=== PATIENT | female | born 1960 | race Caucasian/White ===

== ENCOUNTER → 2017-04-23 | Outpatient (RCR) | payer MEDICAID, OTHER | LOC: M PT 04-11 07:44 | PROVIDERS: ATTEND Family Medicine | DX: Z51.89 Encounter for other specified aftercare (principal); I89.0 Lymphedema, not elsewhere classified ==

== ENCOUNTER 2017-05-23 08:30 | Outpatient (RCR) | payer OTHER | END 2017-05-24 | disposition home or self-care (01) | LOC: M PT 08:30 | PROVIDERS: ATTEND Family Medicine | DX: Z51.89 Encounter for other specified aftercare (principal); I89.0 Lymphedema, not elsewhere classified ==

== ENCOUNTER → 2017-08-14 | Outpatient (REF) | payer OTHER ==
[2017-08-14 13:56] LABS: BACTERIA, URINE MOD AMOUNT; HYALINE CAST, URINE NONE SEEN /lpf (0-1); MICROSCOPIC EXAM PERFORMED; RBC, URINE 15-20 /hpf (0-3); SQUAMOUS EPITHELIAL CELL URINE MOD AMOUNT /hpf (SMALL AMT)
[2017-08-14 14:14] LABS: PERCENT SATURATION 12.4 % (13.2-45.0)
== END ==
LOC: M LAB REF 13:03
PROVIDERS: ATTEND Internal Medicine Nephrology
DX: N18.3 Chronic kidney disease, stage 3 (moderate) (principal); D64.9 Anemia, unspecified; R31.29 Other microscopic hematuria

== ENCOUNTER 2017-08-22 08:30 | Outpatient (RCR) | payer OTHER | END 2017-08-23 | LOC: M PT 08:30 | PROVIDERS: ATTEND Family Medicine | DX: Z51.89 Encounter for other specified aftercare (principal); I89.0 Lymphedema, not elsewhere classified ==

== ENCOUNTER → 2017-10-12 | Outpatient (CLI) | payer OTHER ==
[2017-10-12 09:43] LABS: ESTIMATED AVERAGE GLUCOSE 123 MG/DL (60-110); HEMOGLOBIN A1c 5.9 %
== END ==
LOC: M LAB 08:08
DX: E11.9 Type 2 diabetes mellitus without complications (principal)
CPT/HCPCS: 83036

== ENCOUNTER → 2017-11-05 | Outpatient (CLI) | payer OTHER | LOC: M WHC 07:56 | DX: Z12.31 Encounter for screening mammogram for malignant neoplasm of breast (principal) | CPT/HCPCS: 77067 ==

== ENCOUNTER → 2018-02-04 | Outpatient (CLI) | payer OTHER ==
[2018-02-04 17:54] LABS: HEMATOCRIT 34.4 % (36.0-47.0); HEMOGLOBIN 11.2 g/dl (12.0-15.5); MEAN CORPUSCULAR HGB CONC 32.6 g/dl (32.0-36.5); PLATELET COUNT, AUTOMATED 236 10^3/uL (150-450); RED CELL DISTRIBUTION WIDTH 14.8 % (11.5-14.5); WHITE BLOOD COUNT 6.5 10^3/uL (4.0-10.0)
[2018-02-04 18:06] LABS: ANION GAP 8 MEQ/L (8-16); BLOOD UREA NITROGEN 27 MG/DL (7-18); CALCIUM LEVEL 9.3 MG/DL (8.5-10.1); CARBON DIOXIDE LEVEL 26 MEQ/L (21-32); CHLORIDE LEVEL 108 MEQ/L (98-107); CREATININE FOR GFR 1.59 MG/DL (0.55-1.30); GLOMERULAR FILTRATION RATE 35.4 (>51); GLUCOSE, FASTING 124 MG/DL (70-100); POTASSIUM SERUM 4.5 MEQ/L (3.5-5.1); SODIUM LEVEL 142 MEQ/L (136-145)
== END ==
LOC: M LAB 15:47
DX: N93.9 Abnormal uterine and vaginal bleeding, unspecified (principal); E66.01 Morbid (severe) obesity due to excess calories; I48.2 Chronic atrial fibrillation
CPT/HCPCS: 80048

== ENCOUNTER → 2018-02-12 | Outpatient (CLI) | payer OTHER | LOC: M RAD 17:40 | DX: C54.1 Malignant neoplasm of endometrium (principal) | CPT/HCPCS: 76856 ==

== ENCOUNTER → 2018-04-11 | Outpatient (CLI) | payer MEDICARE, OTHER ==
[2018-04-11 09:22] LABS: ESTIMATED AVERAGE GLUCOSE 157 MG/DL (60-110); HEMOGLOBIN A1c 7.1 %
== END ==
LOC: M LAB 07:56
DX: E11.9 Type 2 diabetes mellitus without complications (principal); E03.9 Hypothyroidism, unspecified
CPT/HCPCS: 84443

== ENCOUNTER → 2018-07-04 | Outpatient (REF) | payer MEDICARE, OTHER, MEDICAID ==
[2018-07-04 14:45] LABS: FERRITIN 17 NG/ML (8-252); IRON (FE) 60 UG/DL (50-170); PERCENT SATURATION 14.2 % (13.2-45.0); TOTAL IRON BINDING CAPACITY 424 UG/DL (250-450)
== END ==
LOC: M LAB REF 14:05
DX: N18.3 Chronic kidney disease, stage 3 (moderate) (principal); D64.9 Anemia, unspecified
CPT/HCPCS: 83550

== ENCOUNTER → 2018-07-17 | Outpatient (CLI) | payer MEDICARE, MEDICAID, OTHER ==
[2018-07-17 08:54] LABS: ESTIMATED AVERAGE GLUCOSE 220 MG/DL (60-110); HEMOGLOBIN A1c 9.3 %
== END ==
LOC: M LAB 07:25
DX: E03.9 Hypothyroidism, unspecified (principal); E11.9 Type 2 diabetes mellitus without complications
CPT/HCPCS: 84443

== ENCOUNTER → 2018-10-21 | Outpatient (REF) | payer MEDICARE ==
[2018-10-21 12:13] LABS: HEMOGLOBIN A1c 7.3 %
[2018-10-21 12:17] LABS: ALBUMIN 3.8 GM/DL (3.2-5.2); BILIRUBIN,TOTAL 0.7 MG/DL (0.2-1.0); CALCIUM LEVEL 9.5 MG/DL (8.8-10.2); CREATININE FOR GFR 1.73 MG/DL (0.55-1.30); FREE T4 1.22 NG/DL (0.76-1.46); POTASSIUM SERUM 4.5 MEQ/L (3.5-5.1); THYROID STIMULATING HORMONE 2.9 uIU/ML (0.358-3.740); TOTAL PROTEIN 7.6 GM/DL (6.4-8.2)
== END ==
LOC: M SFHCPLAZ 09:17
PROVIDERS: ATTEND Nurse Practitioner Family
DX: E11.65 Type 2 diabetes mellitus with hyperglycemia (principal); E03.9 Hypothyroidism, unspecified

== ENCOUNTER → 2019-01-21 | Outpatient (REF) | payer MEDICARE ==
[2019-01-21 11:36] LABS: HEMOGLOBIN A1c 6.7 %
[2019-01-21 12:05] LABS: CALCIUM LEVEL 9.4 MG/DL (8.8-10.2); CREATININE FOR GFR 1.79 MG/DL (0.55-1.30); GLOMERULAR FILTRATION RATE 30.8 (>45); POTASSIUM SERUM 4.6 MEQ/L (3.5-5.1)
== END ==
LOC: M SFHCPLAZ 08:35
PROVIDERS: ATTEND Family Medicine
DX: E11.21 Type 2 diabetes mellitus with diabetic nephropathy (principal); N18.3 Chronic kidney disease, stage 3 (moderate)

== ENCOUNTER 2019-02-05 08:15 | Emergency (ER) | payer MEDICARE ==
[2019-02-05] MEDS ORDERED: BUME1TAB3 PO (08:32)
[2019-02-05] MEDS ORDERED: LEVO50TA5 PO (08:32)
[2019-02-05] MEDS ORDERED: ALLO100T PO (08:32)
[2019-02-05] MEDS ORDERED: ATOR1TAB21 PO (08:32)
[2019-02-05] MEDS ORDERED: TRES1INJ SQ (08:32)
[2019-02-05] MEDS ORDERED: LOSA50TA88 PO (08:32)
[2019-02-05] MEDS ORDERED: CALC1CAP31 PO (08:32)
[2019-02-05] MEDS ORDERED: XARE15TA PO (08:32)
[2019-02-05] MEDS ORDERED: LETR2.5T2 PO (08:32)
[2019-02-05] MEDS ORDERED: SPIR50TA4 PO (08:32)
[2019-02-05] MEDS ORDERED: ATEN50TA2 PO (08:32)
[2019-02-05 09:09] LABS: BASO % 0.4 % (0.0-1.0); EOS # 0.1 10^3/uL (0.0-0.50); EOS % 1.5 % (0.0-3.0); HEMATOCRIT 30.8 % (36.0-47.0); HEMOGLOBIN 9.4 g/dl (12.0-15.5); LYMPH # 0.3 10^3/uL (1.5-4.5); LYMPH % 4.4 % (24.0-44.0); MEAN CORPUSCULAR HEMOGLOBIN 27.6 pg (27.0-33.0); MEAN CORPUSCULAR HGB CONC 30.5 g/dl (32.0-36.5); MEAN CORPUSCULAR VOLUME 90.6 fl (80.0-96.0); MONO # 0.3 10^3/uL (0.0-0.8); MONO % 3.8 % (0.0-5.0); NEUTROPHILS # 6.1 10^3/uL (1.8-7.7); NEUTROPHILS % 89.2 % (36.0-66.0); PLATELET COUNT, AUTOMATED 233 10^3/uL (150-450); WHITE BLOOD COUNT 6.8 10^3/uL (4.0-10.0)
[2019-02-05 09:29] LABS: CREATININE FOR GFR 1.84 MG/DL (0.55-1.30); GLOMERULAR FILTRATION RATE 29.8 (>45); POTASSIUM SERUM 4.5 MEQ/L (3.5-5.1)
--- NOTE | 2019-02-05 09:57 | REP ---
Chest two views HISTORY: Dyspnea Comparison: None The lungs are clear. The cardiac silhouette is enlarged. The pulmonary vasculature is normal in appearance. The bony structure is intact. IMPRESSION: Clinically. Electronically Signed by Orion Mullen MD 02/05/2019 09:49 A
[2019-02-05 10:21] LABS: ABG BASE EXCESS -0.9 (-2.0-2.0); ABG O2 SATURATION 98.9 % (95.0-99.0); ABG PARTIAL PRESSURE CO2 40.8 mmHg (35.0-45.0); ABG PARTIAL PRESSURE O2 127.9 mmHg (75.0-100.0); ABG STANDARD HCO3 23.8 MEQ/L (22.0-26.0); ABG TOTAL CO2 25.3 MEQ/L (23.0-31.0); ABG pH (ARTERIAL) 7.388 UNITS (7.350-7.450)
[2019-02-05 11:46] VITALS: O2SAT 94
[2019-02-05 12:58] LABS: ABG BASE EXCESS 0.3 (-2.0-2.0); ABG HCO3 24.7 MEQ/L (22.0-26.0); ABG O2 SATURATION 92.6 % (95.0-99.0); ABG PARTIAL PRESSURE CO2 38.9 mmHg (35.0-45.0); ABG PARTIAL PRESSURE O2 65.2 mmHg (75.0-100.0); ABG STANDARD HCO3 24.6 MEQ/L (22.0-26.0); ABG TOTAL CO2 25.9 MEQ/L (23.0-31.0)
[2019-02-05 13:34] VITALS: BP 162/69
[2019-02-05] MEDS ORDERED: Home Oxygen ×2 (13:36→13:57)
--- NOTE | 2019-02-05 13:36 | ECGEPIP ---
Stationary ECG Study [facility] - ED Test Date: 2019-02-05 Pat Name: CHRISTIE WHITFIELD Department: Room: - Gender: F Uke Operator: teressa : 1960 Requested By: Martín Cardenas Order Number: [id number] Reading MD: Sherri Miller Measurements Intervals [place] Rate: 45 P: GA: 0 QRS: 19 QRSD: 113 T: -4 QT: 474 QTc: 411 Interpretive Statements ATRIAL FIBRILLATION WITH SLOW VENTRICULAR RESPONSE POSSIBLE RIGHT VENTRICULAR CONDUCTION DELAY NONSPECIFIC ST & T-WAVE ABNORMALITY ABNORMAL RHYTHM ECG NO PRIOR FOR COMPARISON Electronically Signed On 02-05-2019 13:35:29 EDT by Sherri Miller
== END 2019-02-05 14:30 | disposition home or self-care (01) ==
LOC: M ED 08:15 → EDBD 08:15 → M ED 14:30
DX: R09.02 Hypoxemia (principal); E66.2 Morbid (severe) obesity with alveolar hypoventilation; G47.30 Sleep apnea, unspecified; I48.91 Unspecified atrial fibrillation; R94.31 Abnormal electrocardiogram [ECG] [EKG]; I50.9 Heart failure, unspecified; E11.9 Type 2 diabetes mellitus without complications; I10 Essential (primary) hypertension; N18.3 Chronic kidney disease, stage 3 (moderate); Z79.4 Long term (current) use of insulin; Z79.899 Other long term (current) drug therapy
CPT/HCPCS: 36415; 36600; 71046; 80048; 82803; 85025; 93005; 93041; 99285; G0463

== ENCOUNTER → 2019-03-03 | Outpatient (REF) | payer MEDICARE ==
[~2019-03-03] MED LIST: ALLO100T PO; ATEN50TA2 PO; ATOR1TAB21 PO; BUME1TAB3 PO; CALC1CAP31 PO; Home Oxygen; LETR2.5T2 PO; LEVO50TA5 PO; LOSA50TA88 PO; SPIR50TA4 PO; TRES1INJ SQ; XARE15TA PO
[2019-03-03 14:03] LABS: PERCENT SATURATION 8.3 % (13.2-45.0)
== END ==
LOC: M LAB REF 12:46
PROVIDERS: ATTEND Internal Medicine Nephrology
DX: N18.3 Chronic kidney disease, stage 3 (moderate) (principal); D64.9 Anemia, unspecified

== ENCOUNTER → 2019-03-10 | Outpatient (CLI) | payer MEDICARE ==
--- NOTE | 2019-03-10 08:19 | PFTRPT ---
Height: 64.50 Inches Weight: 393.00 Lbs BSA: 2.62 Diagnosis: R06.02 DATE OF PROCEDURE: 03/10/2019 ORDERED BY: Dr. Jeana Monroy Pre and post bronchodilator study of excellent technical quality. Patient unable to have the plethysmography maneuvers performed; therefore, no lung volumes or airway resistance or conductance could be obtained. Spirometry: Forced vital capacity normal. FEV1 in proportion. Obstructive index is, therefore, normal. Flow Volume Loop: Expiratory limb of the flow volume loop suggests significant restrictive impairment. Only borderline bronchodilator response identified. Diffusing Capacity: Diffusing capacity, although reduced, is completely appropriate for alveolar volume. Hemoglobin: No hemoglobin available for correction. IMPRESSION: Suspect significant restrictive ventilatory impairment. Please correlate clinically. MTDD
== END ==
LOC: M CARPUL 07:40
PROVIDERS: ATTEND Family Medicine
DX: R09.02 Hypoxemia (principal); R06.02 Shortness of breath

== ENCOUNTER → 2019-05-22 | Outpatient (CLI) | payer MEDICARE ==
--- NOTE | 2019-05-27 13:33 | DEXA ---
AP SPINE L1 - L4 LT FEMUR TOTAL LT NECK RT FEMUR TOTAL RT NECK LEFT RADIUS 33% 1.027 1.6 2.6 RIGHT RADIUS 33% 0.973 1.0 1.9 COMMENTS: Normal bone densitometry of both forearms. FOLLOW-UP: Recommendation for the next bone density exam: 5 years. [place]
== END ==
LOC: M WHC 10:37
PROVIDERS: ATTEND Obstetrics & Gynecology
DX: Z91.89 Other specified personal risk factors, not elsewhere classified (principal); Z92.3 Personal history of irradiation; C54.1 Malignant neoplasm of endometrium; Z78.0 Asymptomatic menopausal state

== ENCOUNTER → 2019-06-18 | Outpatient (REF) | payer MEDICARE ==
[2019-06-18 11:36] LABS: HEMOGLOBIN A1c 7.4 %
[2019-06-18 11:54] LABS: CALCIUM LEVEL 9.4 MG/DL (8.8-10.2); CREATININE FOR GFR 2.19 MG/DL (0.55-1.30); GLOMERULAR FILTRATION RATE 24.4 (>45); POTASSIUM SERUM 4.8 MEQ/L (3.5-5.1)
== END ==
LOC: M SFHCPLAZ 08:01
PROVIDERS: ATTEND Family Medicine
DX: E11.21 Type 2 diabetes mellitus with diabetic nephropathy (principal); I10 Essential (primary) hypertension
CPT/HCPCS: 36415; 80048; 83036; G0463

== ENCOUNTER → 2019-06-23 | Outpatient (REF) | payer MEDICARE ==
[2019-06-23 12:29] LABS: CALCIUM LEVEL 9.7 MG/DL (8.8-10.2); CREATININE FOR GFR 2.17 MG/DL (0.55-1.30); GLOMERULAR FILTRATION RATE 24.6 (>45); POTASSIUM SERUM 4.9 MEQ/L (3.5-5.1)
== END ==
LOC: M SFHCPLAZ 10:30
PROVIDERS: ATTEND Family Medicine
DX: N18.3 Chronic kidney disease, stage 3 (moderate) (principal)

== ENCOUNTER → 2019-07-29 | Outpatient (REF) | payer MEDICARE, MEDICAID | LOC: M LAB REF 13:37 | PROVIDERS: ATTEND Internal Medicine Nephrology | DX: N18.4 Chronic kidney disease, stage 4 (severe) (principal); I50.32 Chronic diastolic (congestive) heart failure ==

== ENCOUNTER → 2019-09-30 | Outpatient (REF) | payer OTHER ==
[2019-09-30 14:30] LABS: HEMOGLOBIN A1c 7.3 %
== END ==
LOC: M SFHCPLAZ 08:26
PROVIDERS: ATTEND Family Medicine
DX: E11.21 Type 2 diabetes mellitus with diabetic nephropathy (principal); E03.9 Hypothyroidism, unspecified

== ENCOUNTER → 2019-11-26 | Outpatient (REF) | payer OTHER ==
[2019-11-26 11:39] LABS: THYROID STIMULATING HORMONE 2.97 uIU/ML (0.358-3.740)
== END ==
LOC: M SFHCPLAZ 07:34
PROVIDERS: ATTEND Family Medicine
DX: E03.9 Hypothyroidism, unspecified (principal); R25.1 Tremor, unspecified
CPT/HCPCS: 36415; 82607; 84443; G0463

== ENCOUNTER → 2019-12-04 | Outpatient (CLI) | payer OTHER ==
--- NOTE | 2019-12-04 11:10 | REPMRS ---
Patient History The patient states she had a clinical breast exam in April 2019. Patient is postmenopausal, has history of endometrial cancer at age 56, and is nulliparous. Family history of breast cancer at age 50 or over in mother, prostate cancer at age 50 or over in father, endometrial cancer at age 50 or over in sister, breast cancer at age 54 in sister. Digital Woman Screen Mammo: December 04, 2019 - Exam #: [id number] Bilateral CC and MLO view(s) were taken. Technologist: RT Timo Prior study comparison: November 05, 2017, digital woman screen mammo performed at [facility] and [facility]. November 02, 2016, bilateral digital mammo screening bilat, performed at [facility]. January 22, 2013, bilateral digital mammo screening bilat, performed at [facility]. FINDINGS: There are scattered fibroglandular densities. There has been no change in the appearance of the mammogram from the prior studies. There is a mild amount of scattered fibroglandular density which is fairly symmetric. There is no interval development of dominant mass, architectural distortion, or grouped microcalcification suggestive of malignancy. 3-D tomosynthesis shows no additional findings. Assessment: BI-RADS/ACR category 1 mammogram. Negative Mammogram. Recommendation Breast MRI of both breasts in 6 months. Routine screening mammogram of both breasts in 1 year (for women over age 40). This patient's Lifetime Breast Cancer Risk is estimated at 23.2 %. Annual screening Breast MRI scanniing is recommended for patient's whose lifetime risk assessment is over 20%. This mammogram was interpreted with the aid of an FDA-approved computer-aided dectection system. Electronically Signed By: Hernando Chavez MD 12/04/19 [id number]
== END ==
LOC: M WHC 09:43
PROVIDERS: ATTEND Family Medicine
DX: Z12.31 Encounter for screening mammogram for malignant neoplasm of breast (principal); Z80.3 Family history of malignant neoplasm of breast; Z80.42 Family history of malignant neoplasm of prostate; Z85.44 Personal history of malignant neoplasm of other female genital organs; Z80.49 Family history of malignant neoplasm of other genital organs

== ENCOUNTER → 2020-01-27 | Outpatient (REF) | payer OTHER ==
[2020-01-27 11:29] LABS: CHOLESTEROL RISK RATIO 3.529 (<5)
[2020-01-27 12:13] LABS: HEMOGLOBIN A1c 8.1 %
== END ==
LOC: M PLALAB 09:16
PROVIDERS: ATTEND Family Medicine
DX: E11.21 Type 2 diabetes mellitus with diabetic nephropathy (principal); E78.2 Mixed hyperlipidemia; Z23 Encounter for immunization
CPT/HCPCS: 36415; 80061; 83036; 90732; G0009

== ENCOUNTER → 2020-02-20 | Outpatient (CLI) | payer OTHER ==
[2020-02-20 08:46] LABS: BASO % 0.3 % (0.0-1.0); EOS # 0.1 10^3/uL (0.0-0.5); EOS % 1.1 % (0.0-3.0); HEMATOCRIT 41.1 % (36.0-47.0); HEMOGLOBIN 13.1 g/dl (12.0-15.5); LYMPH # 0.7 10^3/uL (1.5-5.0); LYMPH % 5.3 % (24.0-44.0); MEAN CORPUSCULAR HEMOGLOBIN 28.1 pg (27.0-33.0); MEAN CORPUSCULAR HGB CONC 31.9 g/dl (32.0-36.5); MEAN CORPUSCULAR VOLUME 88.2 fl (80.0-96.0); MONO # 0.6 10^3/uL (0.0-0.8); MONO % 4.4 % (0.0-5.0); NEUTROPHILS # 11.5 10^3/uL (1.5-8.5); NEUTROPHILS % 88.3 % (36.0-66.0); PLATELET COUNT, AUTOMATED 329 10^3/uL (150-450); RED BLOOD COUNT 4.66 10^6/uL (4.00-5.40); WHITE BLOOD COUNT 13.1 10^3/uL (4.0-10.0)
[2020-02-20 09:15] LABS: ALBUMIN 3.6 GM/DL (3.2-5.2); BILIRUBIN,TOTAL 0.8 MG/DL (0.2-1.0); CALCIUM LEVEL 9.7 MG/DL (8.8-10.2); CREATININE FOR GFR 2.32 MG/DL (0.55-1.30); GLOMERULAR FILTRATION RATE 22.7 (>45); POTASSIUM SERUM 3.9 MEQ/L (3.5-5.1); TOTAL PROTEIN 8.4 GM/DL (6.4-8.2)
--- NOTE | 2020-02-20 09:54 | REP ---
REASON FOR EXAM: Lower abdominal pain. PRIORS: None. The lack of intravenous contrast and the lack of oral bowel preparatory contrast decreases the sensitivity of the exam. Lung bases are clear. Limited evaluation of the liver shows a 1.1 cm size focal area of low density in the anterior segment of the right lobe of the liver, which has water density Hounsfield unit readings. There are surgical clips in the gallbladder fossa from previous cholecystectomy. There is a single calcification in the spleen consistent with chronic granulomatous changes. There is a single calcification seen along the anterior hepatic margin at the level of the diaphragmatic slip, also consistent with a chronic calcification. Limited evaluation of the pancreas and adrenal glands show no gross abnormalities. Arising from the anterior limb of the left adrenal gland there is a 2.5 cm sized low density nodule, which has consistently low density Hounsfield unit readings consistent with benignity. Limited evaluation of the kidneys shows an irregularity arising from the inferior pole of the right kidney projecting posteriorly and very difficult to evaluate without intravenous contrast administration. The abdominal aorta and paraaortic regions are within normal limits. No free fluid or air is seen in the abdomen or pelvis. The intra-abdominal and intrapelvic bowel loops and their mesenteries appear to be within normal limits. There is no free fluid or free air seen in the abdomen or pelvis. The uterus appears grossly enlarged. There are multiple metallic radiodensities scattered within the anterior abdominal wall extending into the pelvis. The etiology of these are uncertain. I have been given no surgical history. Additionally, metallic radiodensities are seen in the right lower quadrant. There is no evidence of intra-abdominal or pelvic sidewall adenopathy. Bone window technique throughout the examination shows spinal degenerative changes. IMPRESSION: 1. Benign left adrenal gland nodule. 2. Possible right renal mass lesion. Contrast enhanced exam is recommended using dynamic scanning technique. 3. Metallic radiodensities as described above. Etiology uncertain. Correlate with surgical history. 4. Enlarged uterus, etiology uncertain. Pelvic ultrasonography is recommended using both transvesical and transvaginal techniques. 5. Other findings as described above. Electronically Signed by Yandel Yeboah DO 02/20/2020 11:04 A
--- NOTE | 2020-02-20 12:12 | REP ---
RENAL ULTRASOUND: Real-time sonographic evaluation of the kidneys is performed. Right kidney is somewhat atrophic. Both kidneys are normal in echotexture. Right kidney measures 8.7 x 4.7 x 5.5 cm and left kidney 9.7 x 4.7 x 5.0 cm. There is no renal mass bilaterally. There is no hydronephrosis. Urinary bladder is not well distended. Ureteral jets could not be seen with Doppler color evaluation. IMPRESSION: Mild right renal atrophy. No evidence of renal mass bilaterally and no hydronephrosis. Electronically Signed by Colton Bhagat MD 02/20/2020 03:52 P
--- NOTE | 2020-02-20 12:23 | REP ---
PELVIC ULTRASOUND: Real-time sonographic evaluation of the pelvis performed utilizing transabdominal and endovaginal technique. The study is limited due to suboptimal distention of the bladder and patient body habitus. Bladder measures 8.1 x 4.0 x 5.4 cm. Uterus is enlarged and measures 16.0 x 7.5 x 9.3 cm. Echotexture is heterogeneous. Endometrium is not visualized. Ovaries are not visualized. No adnexal mass or free fluid is seen. IMPRESSION: Enlarged uterus. The study is limited due to patient body habitus. Endometrium cannot be visualized and therefore cannot be evaluated. No evidence of adnexal mass or free fluid. Electronically Signed by Colton Bhagat MD 02/20/2020 03:52 P
== END ==
LOC: M LAB 08:27
PROVIDERS: ATTEND Family Medicine
DX: N85.2 Hypertrophy of uterus (principal); N26.1 Atrophy of kidney (terminal); R10.30 Lower abdominal pain, unspecified
CPT/HCPCS: 36415; 74176; 76775; 76830; 76856; 80053; 85025; G0463

== ENCOUNTER → 2020-04-27 | Outpatient (REF) | payer OTHER | LOC: M LAB REF 10:44 | PROVIDERS: ATTEND Nurse Practitioner Family | DX: N39.0 Urinary tract infection, site not specified (principal) ==

== ENCOUNTER → 2020-06-25 | Outpatient (REF) | payer OTHER ==
[2020-06-25 13:46] LABS: BASO % 0.4 % (0.0-1.0); EOS # 0.2 10^3/uL (0.0-0.5); EOS % 2.3 % (0.0-3.0); HEMATOCRIT 40.7 % (36.0-47.0); HEMOGLOBIN 13.2 g/dl (12.0-15.5); LYMPH # 0.9 10^3/uL (1.5-5.0); LYMPH % 8.5 % (24.0-44.0); MEAN CORPUSCULAR HEMOGLOBIN 29.2 pg (27.0-33.0); MEAN CORPUSCULAR HGB CONC 32.4 g/dl (32.0-36.5); MONO # 0.6 10^3/uL (0.0-0.8); MONO % 5.2 % (0.0-5.0); NEUTROPHILS # 8.7 10^3/uL (1.5-8.5); NEUTROPHILS % 82.7 % (36.0-66.0); PLATELET COUNT, AUTOMATED 315 10^3/uL (150-450); RED BLOOD COUNT 4.52 10^6/uL (4.00-5.40); WHITE BLOOD COUNT 10.6 10^3/uL (4.0-10.0)
[2020-06-25 14:18] LABS: HEMOGLOBIN A1c 7.7 %
[2020-06-25 14:22] LABS: ALBUMIN 3.7 GM/DL (3.2-5.2); BILIRUBIN,TOTAL 0.8 MG/DL (0.2-1.0); CALCIUM LEVEL 9.6 MG/DL (8.8-10.2); CREATININE FOR GFR 2.52 MG/DL (0.55-1.30); GLOMERULAR FILTRATION RATE 20.7 (>45); POTASSIUM SERUM 4.1 MEQ/L (3.5-5.1); THYROID STIMULATING HORMONE 2.34 uIU/ML (0.358-3.740); TOTAL PROTEIN 7.6 GM/DL (6.4-8.2)
== END ==
LOC: M SFHCPLAZ 12:14
PROVIDERS: ATTEND Family Medicine
DX: E11.21 Type 2 diabetes mellitus with diabetic nephropathy (principal); R63.4 Abnormal weight loss; E03.9 Hypothyroidism, unspecified
CPT/HCPCS: 36415; 80053; 83036; 84443; 85025; G0463

== ENCOUNTER → 2020-06-28 | Outpatient (REF) | payer OTHER ==
[2020-06-28 12:05] LABS: APPEARANCE, URINE CLEAR (CLEAR); BACTERIA, URINE AUTO NEGATIVE (NEGATIVE); BILIRUBIN, URINE AUTO NEGATIVE (NEGATIVE); BLOOD, URINE BLOOD NEGATIVE (NEGATIVE); COLOR, URINE YELLOW (YELLOW); GLUCOSE, URINE (UA) AUTO NEGATIVE (NEGATIVE); KETONE, URINE AUTO NEGATIVE (NEGATIVE); LEUKOCYTE ESTERASE, URINE AUTO NEGATIVE (NEGATIVE); NITRITE, URINE AUTO NEGATIVE (NEGATIVE); PROTEIN, URINE AUTO NEGATIVE (NEGATIVE); RBC, URINE AUTO 0 /HPF (0-3); SPECIFIC GRAVITY URINE AUTO 1.016 (1.002-1.035); SQUAMOUS EPITHELIAL CELL UR AU 2 /HPF (0-6); UROBILINOGEN, URINE AUTO 0.2 mg/dL (0.0-2.0); WBC, URINE AUTO 1 /HPF (0-3)
== END ==
LOC: M SFHCPLAZ 10:00
PROVIDERS: ATTEND Family Medicine
DX: R63.4 Abnormal weight loss (principal)

== ENCOUNTER → 2020-10-01 | Outpatient (REF) | payer OTHER ==
[2020-10-01 13:16] LABS: HEMOGLOBIN A1c 7.8 %
== END ==
LOC: M PLALAB 08:07
PROVIDERS: ATTEND Family Medicine
DX: E11.21 Type 2 diabetes mellitus with diabetic nephropathy (principal)

== ENCOUNTER → 2020-11-17 | Outpatient (REF) | payer OTHER ==
[2020-11-17 19:17] LABS: PERCENT SATURATION 16.5 % (13.2-45.0)
== END ==
LOC: M LAB REF 17:34
PROVIDERS: ATTEND Internal Medicine Nephrology
DX: I50.32 Chronic diastolic (congestive) heart failure (principal); N18.4 Chronic kidney disease, stage 4 (severe)

== ENCOUNTER → 2021-01-17 | Outpatient (REF) | payer OTHER | LOC: M LAB REF 17:12 | PROVIDERS: ATTEND Internal Medicine Nephrology | DX: N18.4 Chronic kidney disease, stage 4 (severe) (principal); I50.32 Chronic diastolic (congestive) heart failure ==

== ENCOUNTER → 2021-02-11 | Outpatient (REF) | payer OTHER ==
[2021-02-11 11:04] LABS: CHOLESTEROL RISK RATIO 3.405 (<5)
[2021-02-11 11:16] LABS: HEMOGLOBIN A1c 7.6 %
== END ==
LOC: M SFHCPLAZ 08:48
PROVIDERS: ATTEND Family Medicine
DX: E11.21 Type 2 diabetes mellitus with diabetic nephropathy (principal); E78.2 Mixed hyperlipidemia

== ENCOUNTER → 2021-03-04 | Outpatient (CLI) | payer OTHER ==
--- NOTE | 2021-03-04 08:45 | REPMRS ---
Patient History The patient states she has not had a clinical breast exam in over a year. Family history of breast cancer at age 50 or over in mother, prostate cancer at age 50 or over in father, endometrial cancer at age 50 or over in sister, breast cancer at age 54 in sister. Moderna vaccine 12/22/20 left arm, 01/13/21 left arm. 70 LB unintentional weight loss. Patient states no breast complaints today. Patient has signed MRS History Sheet. Digital Woman Screen Mammo: March 04, 2021 - Exam #: [id number] Bilateral CC and MLO view(s) were taken. Technologist: RT Timo Prior study comparison: December 04, 2019, bilateral digital woman screen mammo performed at [facility]. November 05, 2017, digital woman screen mammo performed at [facility]. FINDINGS: There are scattered fibroglandular densities. Screening. Digital screening (2D) mammography was performed bilaterally in the CC and MLO projections. Additionally, breast tomosynthesis (3D mammography) was performed bilaterally in the CC and MLO projections. Todays exam was compared to the prior exam/exams. By history, the patient has no complaints of a palpable breast abnormality or other significant breast complaints. The breasts are unchanged in size and shape. There are no za-soft tissue densities or spiculated masses. There is no internal architectural distortion. Once again, stable benign appearing calcifications are seen.There are no suspicious za-calcific clusters. Skin thickening or nipple retraction is not present. IMPRESSION: BI-RADS Category 2- Benign Findings. There is no evidence of malignant alteration of the breasts. Followup examination recommended in one year. The Volpara volumetric breast density category is B, there are scattered areas of fibroglandular density. This mammogram was read with the assistance of [employer],an FDA approved computer aided detection system for mammography. The lifetime Tyrer-Cuzick score is 22.4 % Due to the density of the breasts or Tyrer Cuzick score of 20% or greater, MRI/whole breast screening ultrasound is warranted. Negative x-ray reports should not delay surgical consultation if a dominant or clinically suspicious mass is present. Not all breast cancers can be identified by mammography. Therefore, we recommend that you continue to perform regular breast self-examination and physical examination and then promptly contact your physician of any concerns or changes. Adenosis and dense breasts may obscure an underlying neoplasm. Assessment: BI-RADS/ACR category 2 mammogram. Benign Findings. Recommendation Routine screening mammogram of both breasts in 1 year. Electronically Signed By: Yandel Yeboah DO 03/04/21 [id number]
== END ==
LOC: M WHC 07:13
PROVIDERS: ATTEND Family Medicine
DX: Z12.31 Encounter for screening mammogram for malignant neoplasm of breast (principal); Z80.3 Family history of malignant neoplasm of breast; Z80.42 Family history of malignant neoplasm of prostate; Z80.49 Family history of malignant neoplasm of other genital organs; R92.1 Mammographic calcification found on diagnostic imaging of breast

== ENCOUNTER → 2021-05-24 | Outpatient (REF) | payer OTHER ==
[2021-05-24 14:10] LABS: MAGNESIUM LEVEL 2.6 MG/DL (1.8-2.4)
== END ==
LOC: M LAB REF 12:03
PROVIDERS: ATTEND Internal Medicine Nephrology
DX: N18.4 Chronic kidney disease, stage 4 (severe) (principal); I50.32 Chronic diastolic (congestive) heart failure; E83.42 Hypomagnesemia

== ENCOUNTER → 2021-06-13 | Outpatient (CLI) | payer OTHER ==
[2021-06-13 11:29] LABS: HEMOGLOBIN A1c 7.9 %
== END ==
LOC: M PLALAB 07:57
PROVIDERS: ATTEND Family Medicine
DX: E11.21 Type 2 diabetes mellitus with diabetic nephropathy (principal); E03.9 Hypothyroidism, unspecified; I10 Essential (primary) hypertension; Z79.4 Long term (current) use of insulin
CPT/HCPCS: 36415; 83036; 84443; G0463

== ENCOUNTER → 2021-09-21 | Outpatient (CLI) | payer OTHER ==
[2021-09-21 11:13] LABS: CALCIUM LEVEL 9.8 MG/DL (8.8-10.2); CREATININE FOR GFR 2.68 MG/DL (0.55-1.30); GLOMERULAR FILTRATION RATE 19.1 (>45); POTASSIUM SERUM 4.4 MEQ/L (3.5-5.1)
== END ==
LOC: M PLALAB 07:14
PROVIDERS: ATTEND Nurse Practitioner Family
DX: I10 Essential (primary) hypertension (principal)

== ENCOUNTER → 2021-10-24 | Outpatient (REF) | payer OTHER ==
[~2021-10-24] MED LIST changes: +LOSA50TA28 PO; -LOSA50TA88 PO
== END ==
LOC: M LAB REF 12:41
PROVIDERS: ATTEND Internal Medicine Nephrology
DX: N18.4 Chronic kidney disease, stage 4 (severe) (principal); E83.42 Hypomagnesemia

== ENCOUNTER → 2021-11-08 | Outpatient (CLI) | payer OTHER ==
[2021-11-08 12:01] LABS: FREE T4 1.27 NG/DL (0.76-1.46); THYROID STIMULATING HORMONE 2.75 uIU/ML (0.358-3.740)
[2021-11-08 12:09] LABS: HEMOGLOBIN A1c 6.9 %
== END ==
LOC: M PLALAB 07:11
PROVIDERS: ATTEND Family Medicine
DX: E11.21 Type 2 diabetes mellitus with diabetic nephropathy (principal); E03.9 Hypothyroidism, unspecified

== ENCOUNTER → 2021-12-02 | Outpatient (REF) | payer OTHER ==
[~2021-12-02] MED LIST changes: +ACET-897 PO; +DICY20TA20 PO; +LEVO75TA4 PO; +NOVOINJ3 SQ
[2021-12-02 12:49] LABS: PERCENT SATURATION 5.6 % (13.2-45.0)
== END ==
LOC: M LAB REF 12:27
PROVIDERS: ATTEND Nurse Practitioner Family
DX: D50.9 Iron deficiency anemia, unspecified (principal)

== ENCOUNTER → 2021-12-12 | Outpatient (CLI) | payer OTHER | LOC: M PLARAD 14:55 | PROVIDERS: ATTEND Internal Medicine Medical Oncology | DX: Z85.42 Personal history of malignant neoplasm of other parts of uterus (principal); I51.7 Cardiomegaly; I31.3 Pericardial effusion (noninflammatory); I70.0 Atherosclerosis of aorta; I25.10 Atherosclerotic heart disease of native coronary artery without angina pectoris; L72.3 Sebaceous cyst; Z90.49 Acquired absence of other specified parts of digestive tract; K57.30 Diverticulosis of large intestine without perforation or abscess without bleeding; R16.1 Splenomegaly, not elsewhere classified; R19.09 Other intra-abdominal and pelvic swelling, mass and lump | CPT/HCPCS: 78815; A9552 ==

== ENCOUNTER → 2022-02-08 | Outpatient (CLI) | payer OTHER ==
[~2022-02-08] MED LIST changes: +FERR325T3 PO; +LIDOCAINE 1% MDV 20ML VIAL As Ordered ONE
[2022-02-08 08:27] VITALS: BP 184/78
[2022-02-08 09:34] LABS: INR 1.11; PROTHROMBIN TIME 14.7 SECONDS (12.7-14.5)
[2022-02-08 09:35] LABS: PARTIAL THROMBOPLASTIN TIME 32.5 SECONDS (25.9-37.0)
== END ==
LOC: M IRPRO 08:11
PROVIDERS: ATTEND Internal Medicine Medical Oncology
DX: R22.2 Localized swelling, mass and lump, trunk (principal); Z85.42 Personal history of malignant neoplasm of other parts of uterus; Z79.01 Long term (current) use of anticoagulants

== ENCOUNTER → 2022-03-15 | Outpatient (CLI) | payer OTHER ==
[~2022-03-15] MED LIST changes: -LIDOCAINE 1% MDV 20ML VIAL As Ordered ONE; +ONDA-84 PO; +PROC10TA5 PO
== END ==
LOC: M LABSMTC 11:28
PROVIDERS: ATTEND Anesthesiology
DX: Z01.811 Encounter for preprocedural respiratory examination (principal); Z79.899 Other long term (current) drug therapy; Z20.822 Contact with and (suspected) exposure to COVID-19

== ENCOUNTER → 2022-03-15 | Outpatient (CLI) | payer OTHER | LOC: M PLALAB 07:24 | PROVIDERS: ATTEND Internal Medicine Hematology | DX: Z01.811 Encounter for preprocedural respiratory examination (principal); Z79.899 Other long term (current) drug therapy ==

== ENCOUNTER → 2022-03-19 | Outpatient (CLI) | payer OTHER | LOC: M LABSMTC 11:20 | PROVIDERS: ATTEND Anesthesiology | DX: Z01.818 Encounter for other preprocedural examination (principal); Z11.52 Encounter for screening for COVID-19 ==

== ENCOUNTER → 2022-03-20 | Outpatient (CLI) | payer OTHER ==
[~2022-03-20] MED LIST changes: +LIDOCAINE 1% MDV 20ML VIAL As Ordered ONE; +MIDAZOLAM INJ 2MG/2ML VIAL (J2250 PER 1MG) As Ordered ONE; +NS 1,000 ML IV SCH; +OXYB5TAB10 PO; +ceFAZolin SOD 2 GM in IV 1 EA IV ONE; +diphenhydrAMINE 50MG/ML VIAL (J1200) As Ordered ONE; +fentaNYL 100 MCG/2 ML INJECTION As Ordered ONE
[2022-03-20 13:55] VITALS: BP 147/71
== END ==
LOC: M IRPRO 10:31
PROVIDERS: ATTEND Internal Medicine Medical Oncology
DX: C54.1 Malignant neoplasm of endometrium (principal)
CPT/HCPCS: 36561; 99152; 99153; C1769; C1788; C1894; J0690; J1200; J1642; J1644; J2250; J3010

== ENCOUNTER → 2022-03-21 | Outpatient (CLI) | payer OTHER ==
[~2022-03-21] MED LIST changes: -LIDOCAINE 1% MDV 20ML VIAL As Ordered ONE; -MIDAZOLAM INJ 2MG/2ML VIAL (J2250 PER 1MG) As Ordered ONE; -NS 1,000 ML IV SCH; -ceFAZolin SOD 2 GM in IV 1 EA IV ONE; -diphenhydrAMINE 50MG/ML VIAL (J1200) As Ordered ONE; -fentaNYL 100 MCG/2 ML INJECTION As Ordered ONE
[2022-03-21 16:23] LABS: APPEARANCE, URINE CLEAR (CLEAR); BACTERIA, URINE AUTO NEGATIVE (NEGATIVE); BILIRUBIN, URINE AUTO NEGATIVE (NEGATIVE); BLOOD, URINE BLOOD 1+ (NEGATIVE); COLOR, URINE STRAW (YELLOW); GLUCOSE, URINE (UA) AUTO NEGATIVE (NEGATIVE); KETONE, URINE AUTO NEGATIVE (NEGATIVE); LEUKOCYTE ESTERASE, URINE AUTO NEGATIVE (NEGATIVE); MUCUS, URINE SMALL (NEGATIVE); NITRITE, URINE AUTO NEGATIVE (NEGATIVE); PROTEIN, URINE AUTO NEGATIVE (NEGATIVE); RBC, URINE AUTO 2 /HPF (0-3); SPECIFIC GRAVITY URINE AUTO 1.006 (1.002-1.035); SQUAMOUS EPITHELIAL CELL UR AU 0 /HPF (0-6); UROBILINOGEN, URINE AUTO 0.2 mg/dL (0.0-2.0); WBC, URINE AUTO 2 /HPF (0-3)
== END ==
LOC: M LAB 15:50
PROVIDERS: ATTEND Urology
DX: Z01.818 Encounter for other preprocedural examination (principal); N39.0 Urinary tract infection, site not specified

== ENCOUNTER 2022-03-22 07:13 | Day surgery (SDC) | payer OTHER ==
[~2022-03-22] VITALS: Ht 165.1 cm; Wt 138.3 kg
[~2022-03-22 07:13] MED LIST changes: -OXYB5TAB10 PO
[2022-03-22] MEDS ORDERED: LR 1,000 ML IV SCH (07:30)
[2022-03-22] MEDS ORDERED: INSULIN LISPRO (NovoLOG) PER UNIT SC PRN (07:30)
[2022-03-22] MEDS ORDERED: ISOVUE-300 61% 50ML VIAL As Ordered ONE (07:59)
[2022-03-22] MEDS ORDERED: ceFAZolin SOD 2 GM in IV 1 EA IV ONE (08:30)
[2022-03-22] MEDS ORDERED: ceFAZolin SOD 1 GM in D5W MINI-BAG PLUS 50 ML IV ONE (08:30)
[2022-03-22] MEDS ORDERED: ONDANSETRON 4MG 2ML VIAL As Ordered ONE (08:59)
[2022-03-22] MEDS ORDERED: propofoL 200 MG/20 ML VIAL As Ordered ONE ×2 (08:59→09:47)
[2022-03-22] MEDS ORDERED: LIDOCAINE 2% 100MG/5ML SDV (FOR ANES.) As Ordered ONE (08:59)
[2022-03-22] MEDS ORDERED: MIDAZOLAM INJ 2MG/2ML VIAL (J2250 PER 1MG) As Ordered ONE (09:00)
[2022-03-22] MEDS ORDERED: fentaNYL 100 MCG/2 ML INJECTION As Ordered ONE (09:00)
[2022-03-22] MEDS ORDERED: LIDOCAINE 2% 5ML JELLY UROJET As Ordered ONE (09:30)
[2022-03-22] MEDS ORDERED: OXYB5TAB10 PO (10:22)
[2022-03-22 10:37] VITALS: BP 167/79
[2022-03-23] MEDS ORDERED: UNRESOLVED CLARIFICATION ENTRY XX SCH (00:01)
[2022-03-23] MEDS ORDERED: ONDA-84 PO (07:51)
[2022-03-23] MEDS ORDERED: PROC10TA5 PO (07:52)
== END 2022-03-22 10:40 | disposition home or self-care (01) ==
LOC: M SDC 07:13
PROVIDERS: ATTEND Urology
DX: N13.30 Unspecified hydronephrosis (principal); C53.9 Malignant neoplasm of cervix uteri, unspecified; C54.1 Malignant neoplasm of endometrium; E11.22 Type 2 diabetes mellitus with diabetic chronic kidney disease; N18.9 Chronic kidney disease, unspecified; G47.33 Obstructive sleep apnea (adult) (pediatric); I50.9 Heart failure, unspecified; I11.0 Hypertensive heart disease with heart failure; I48.91 Unspecified atrial fibrillation; E78.5 Hyperlipidemia, unspecified; E03.9 Hypothyroidism, unspecified; N25.81 Secondary hyperparathyroidism of renal origin; E55.9 Vitamin D deficiency, unspecified; R09.02 Hypoxemia; Z99.81 Dependence on supplemental oxygen; Z79.899 Other long term (current) drug therapy; Z79.4 Long term (current) use of insulin; Z79.01 Long term (current) use of anticoagulants; Z79.890 Hormone replacement therapy
CPT/HCPCS: 52332; 52351; 74420; C1769; C2617; J0690; J2250; J2405; J3010; Q9967

== ENCOUNTER → 2022-04-04 | Outpatient (POV) | payer OTHER ==
[~2022-04-04] VITALS: Ht 165.1 cm; Wt 137.7 kg
[~2022-04-04] MED LIST changes: +OXYB5TAB10 PO
[2022-04-04 08:05] VITALS: BP 170/81
== END ==
LOC: M IRPOV 07:37
PROVIDERS: ATTEND Radiology Diagnostic Radiology
DX: Z45.2 Encounter for adjustment and management of vascular access device (principal)

== ENCOUNTER → 2022-04-06 | Outpatient (CLI) | payer OTHER | LOC: M RAD 14:02 | PROVIDERS: ATTEND Urology | DX: N13.30 Unspecified hydronephrosis (principal) ==

== ENCOUNTER → 2022-05-23 | Outpatient (CLI) | payer OTHER ==
[~2022-05-23] MED LIST changes: +GASTROGRAFIN SOLUTION 30ML (Q9963) As Ordered ONE; +ISOVUE-370 76% 100ML VIAL As Ordered ONE
== END ==
LOC: M RAD 11:23
PROVIDERS: ATTEND Internal Medicine
DX: C54.1 Malignant neoplasm of endometrium (principal); K76.89 Other specified diseases of liver; Z90.49 Acquired absence of other specified parts of digestive tract; D35.02 Benign neoplasm of left adrenal gland; N28.1 Cyst of kidney, acquired; Z96.0 Presence of urogenital implants; K57.30 Diverticulosis of large intestine without perforation or abscess without bleeding
CPT/HCPCS: 71260; 74177; Q9963; Q9967

== ENCOUNTER → 2022-07-17 | Outpatient (CLI) | payer OTHER ==
[~2022-07-17] MED LIST changes: -ISOVUE-370 76% 100ML VIAL As Ordered ONE
== END ==
LOC: M RAD 11:23
PROVIDERS: ATTEND Internal Medicine Medical Oncology
DX: C54.1 Malignant neoplasm of endometrium (principal)
CPT/HCPCS: 71250; 74176; Q9963

== ENCOUNTER → 2022-07-26 | Outpatient (CLI) | payer OTHER ==
[~2022-07-26] MED LIST changes: -GASTROGRAFIN SOLUTION 30ML (Q9963) As Ordered ONE; +NEUR300C PO
[2022-07-26 11:09] LABS: FREE T4 1.21 NG/DL (0.76-1.46); THYROID STIMULATING HORMONE 4.19 uIU/ML (0.358-3.740)
== END ==
LOC: M PLALAB 07:29
PROVIDERS: ATTEND Otolaryngology
DX: H90.3 Sensorineural hearing loss, bilateral (principal)

== ENCOUNTER → 2022-10-30 | Outpatient (CLI) | payer OTHER ==
[~2022-10-30] MED LIST changes: +CIPR-249 PO; +NITR-67 PO
== END ==
LOC: M PLARAD 13:05
PROVIDERS: ATTEND Nurse Practitioner
DX: C54.1 Malignant neoplasm of endometrium (principal); I70.0 Atherosclerosis of aorta; I25.10 Atherosclerotic heart disease of native coronary artery without angina pectoris; I51.7 Cardiomegaly; Z95.828 Presence of other vascular implants and grafts; N13.30 Unspecified hydronephrosis
CPT/HCPCS: 78815; A9552

== ENCOUNTER → 2022-11-20 | Outpatient (REF) | payer OTHER ==
[~2022-11-20] MED LIST changes: +AMLO1TAB24; +LEVO100T5 PO
[2022-11-20 16:23] LABS: TOTAL PROTEIN 24 HOUR URINE 673.4 MG/24HR (50-80); URINE TOTAL PROTEIN 25.9 MG/DL (0-14)
== END ==
LOC: M LAB REF 15:08
PROVIDERS: ATTEND Nurse Practitioner
DX: Z85.42 Personal history of malignant neoplasm of other parts of uterus (principal)

== ENCOUNTER → 2022-11-22 | Outpatient (REF) | payer OTHER ==
[2022-11-22 11:01] LABS: CHOLESTEROL RISK RATIO 3.72 (<5); HDL CHOLESTEROL 33.6 MG/DL (>40)
[2022-11-22 11:02] LABS: FREE T4 1.53 NG/DL (0.89-1.76); THYROID STIMULATING HORMONE 2.58 uIU/ML (0.55-4.78)
[2022-11-22 11:17] LABS: HEMOGLOBIN A1c 5.6 % (4.0-6.0)
== END ==
LOC: M SFHCPLAZ 10:21
PROVIDERS: ATTEND Physician Assistant
DX: E03.9 Hypothyroidism, unspecified (principal); E11.21 Type 2 diabetes mellitus with diabetic nephropathy; I48.19 Other persistent atrial fibrillation

== ENCOUNTER → 2023-01-09 | Outpatient (CLI) | payer OTHER | LOC: M PLAIMG 14:26 | PROVIDERS: ATTEND Physician Assistant | DX: M51.36 Other intervertebral disc degeneration, lumbar region (principal) ==

== ENCOUNTER → 2023-03-30 | Outpatient (CLI) | payer OTHER ==
[2023-03-30 10:28] LABS: BASO % 0.6 % (0.0-1.0); EOS # 0.2 10^3/uL (0.0-0.5); EOS % 2.2 % (0.0-3.0); HEMATOCRIT 35.2 % (36.0-47.0); HEMOGLOBIN 11.5 g/dl (12.0-15.5); LYMPH # 0.6 10^3/uL (1.5-5.0); LYMPH % 8.9 % (24.0-44.0); MEAN CORPUSCULAR HGB CONC 32.7 g/dl (32.0-36.5); MEAN CORPUSCULAR VOLUME 94.9 fl (80.0-96.0); MONO # 0.4 10^3/uL (0.0-0.8); MONO % 5.4 % (2.0-8.0); NEUTROPHILS # 5.6 10^3/uL (1.5-8.5); NEUTROPHILS % 81.7 % (36.0-66.0); PLATELET COUNT, AUTOMATED 209 10^3/uL (150-450); RED BLOOD COUNT 3.71 10^6/uL (4.00-5.40); WHITE BLOOD COUNT 6.9 10^3/uL (4.0-10.0)
[2023-03-30 10:52] LABS: ALKALINE PHOSPHATASE 95 U/L (46-116); ALT/SGPT < 9 U/L (7.0-40); AST/SGOT 15 U/L (<34); BILIRUBIN,TOTAL 0.7 MG/DL (0.3-1.2); BLOOD UREA NITROGEN 42 MG/DL (9-23); CALCIUM LEVEL 9.4 MG/DL (8.3-10.6); CARBON DIOXIDE LEVEL 30 MMOL/L (20-31); CHLORIDE LEVEL 105 MMOL/L (98-107); CHOLESTEROL LEVEL 146 MG/DL (<200); CHOLESTEROL RISK RATIO 4.46 (<5); CREATININE FOR GFR 2.02 MG/DL (0.55-1.30); GLOMERULAR FILTRATION RATE 26.4 (>45); GLUCOSE, FASTING 135 MG/DL (74-106); HDL CHOLESTEROL 32.7 MG/DL (>40); LDL CHOLESTEROL 82.5 MG/DL (<100); NON-HDL-C 113.3 MG/DL; POTASSIUM SERUM 4.3 MMOL/L (3.5-5.1); SODIUM LEVEL 141 MMOL/L (136-145); TOTAL PROTEIN 6.7 G/DL (5.7-8.2); TRIGLYCERIDES LEVEL 154 MG/DL (<150)
[2023-03-30 10:53] LABS: FERRITIN 178.4 NG/ML (7.3-270.7); THYROID STIMULATING HORMONE 2.701 uIU/ML (0.55-4.78); TOTAL 25(OH) VITAMIN D 23.5 NG/ML (20.0-100.0)
[2023-03-30 10:54] LABS: FREE T4 1.23 NG/DL (0.89-1.76); VITAMIN B12 LEVEL 585 PG/ML (211-911)
[2023-03-30 10:59] LABS: HEMOGLOBIN A1c 6.8 % (4.0-6.0)
== END ==
LOC: M PLALAB 08:30
PROVIDERS: ATTEND Physician Assistant
DX: E11.21 Type 2 diabetes mellitus with diabetic nephropathy (principal); I10 Essential (primary) hypertension; E03.9 Hypothyroidism, unspecified; N13.30 Unspecified hydronephrosis; C54.1 Malignant neoplasm of endometrium; Z79.899 Other long term (current) drug therapy

== ENCOUNTER → 2023-07-23 | Outpatient (CLI) | payer OTHER ==
[~2023-07-23] MED LIST changes: -OXYB5TAB10 PO; +OXYB5TAB11 PO
== END ==
LOC: M PLARAD 08:10
PROVIDERS: ATTEND Nurse Practitioner
DX: C54.1 Malignant neoplasm of endometrium (principal); D35.02 Benign neoplasm of left adrenal gland; N13.30 Unspecified hydronephrosis; K57.30 Diverticulosis of large intestine without perforation or abscess without bleeding
CPT/HCPCS: 78815; A9552

== ENCOUNTER → 2023-10-22 | Outpatient (CLI) | payer OTHER ==
[2023-10-22 11:04] LABS: HEMATOCRIT 34.5 % (36.0-47.0); MEAN CORPUSCULAR HEMOGLOBIN 30.4 pg (27.0-33.0); MEAN CORPUSCULAR HGB CONC 31.9 g/dl (32.0-36.5); MEAN CORPUSCULAR VOLUME 95.3 fl (80.0-96.0); PLATELET COUNT, AUTOMATED 215 10^3/uL (150-450); RED BLOOD COUNT 3.62 10^6/uL (4.00-5.40); WHITE BLOOD COUNT 6.4 10^3/uL (4.0-10.0)
[2023-10-22 11:28] LABS: CALCIUM LEVEL 9.6 MG/DL (8.3-10.6); CREATININE FOR GFR 2.06 MG/DL (0.55-1.30); GLOMERULAR FILTRATION RATE 25.7 (>45); POTASSIUM SERUM 4.4 MMOL/L (3.5-5.1)
== END ==
LOC: M PLAIMG 07:19
PROVIDERS: ATTEND Urology
DX: Z01.818 Encounter for other preprocedural examination (principal); N13.30 Unspecified hydronephrosis; N39.0 Urinary tract infection, site not specified

== ENCOUNTER → 2023-10-29 | Outpatient (REF) | payer OTHER ==
[2023-10-29 18:25] LABS: APPEARANCE, URINE CLEAR (CLEAR); BACTERIA, URINE AUTO NEGATIVE (NEGATIVE); BILIRUBIN, URINE AUTO NEGATIVE (NEGATIVE); BLOOD, URINE BLOOD NEGATIVE (NEGATIVE); COLOR, URINE STRAW (YELLOW); GLUCOSE, URINE (UA) AUTO NEGATIVE (NEGATIVE); KETONE, URINE AUTO NEGATIVE (NEGATIVE); LEUKOCYTE ESTERASE, URINE AUTO NEGATIVE (NEGATIVE); NITRITE, URINE AUTO NEGATIVE (NEGATIVE); PROTEIN, URINE AUTO 2+ mg/dL (NEGATIVE); RBC, URINE AUTO 0 /HPF (0-3); SPECIFIC GRAVITY URINE AUTO 1.012 (1.002-1.035); SQUAMOUS EPITHELIAL CELL UR AU 0 /HPF (0-6); UROBILINOGEN, URINE AUTO 0.2 mg/dL (0.0-2.0); WBC, URINE AUTO 0 /HPF (0-3)
== END ==
LOC: M SMT 17:04
PROVIDERS: ATTEND Urology
DX: N39.0 Urinary tract infection, site not specified (principal)

== ENCOUNTER → 2023-10-31 | Day surgery (SDC) | payer OTHER ==
[~2023-10-31] VITALS: Ht 165.1 cm; Wt 144.7 kg
[~2023-10-31] MED LIST changes: +LIDOCAINE 2% 100MG/5ML SDV (FOR ANES.) As Ordered ONE; +LR 1,000 ML IV SCH; +MIDAZOLAM INJ 2MG/2ML VIAL As Ordered ONE; +ONDANSETRON 4MG 2ML VIAL As Ordered ONE; -OXYB5TAB11 PO; +OXYB5TAB14 PO; +fentaNYL 100 MCG/2 ML INJECTION As Ordered ONE; +propofoL 200 MG/20 ML VIAL As Ordered ONE
[2023-10-31] MEDS: ceFAZolin 2 GM/D5W 50 ML IV BAG IV ONE (13:18)
[2023-10-31] MEDS: LIDOCAINE 2% 5ML JELLY UROJET As Ordered ONE (13:25)
[2023-10-31 14:12] VITALS: BP 161/70; TEMP 97.2; O2SAT 99
== END | disposition home or self-care (01) ==
LOC: M SDC 10:03
PROVIDERS: ATTEND Urology
DX: N13.30 Unspecified hydronephrosis (principal); I48.91 Unspecified atrial fibrillation; I11.9 Hypertensive heart disease without heart failure; I50.9 Heart failure, unspecified; E03.9 Hypothyroidism, unspecified; R60.0 Localized edema; G47.33 Obstructive sleep apnea (adult) (pediatric); Z88.8 Allergy status to other drugs, medicaments and biological substances; Z79.01 Long term (current) use of anticoagulants; Z92.21 Personal history of antineoplastic chemotherapy; E11.9 Type 2 diabetes mellitus without complications; K58.8 Other irritable bowel syndrome; E78.5 Hyperlipidemia, unspecified; Z85.41 Personal history of malignant neoplasm of cervix uteri
CPT/HCPCS: 52332; 76000; A4215; C1769; C2617; J0690; J1100; J2250; J2405; J3010

== ENCOUNTER → 2023-11-14 | Outpatient (CLI) | payer OTHER ==
[~2023-11-14] MED LIST changes: +GASTROGRAFIN SOLUTION 30ML As Ordered ONE; -LIDOCAINE 2% 100MG/5ML SDV (FOR ANES.) As Ordered ONE; -LR 1,000 ML IV SCH; -MIDAZOLAM INJ 2MG/2ML VIAL As Ordered ONE; -ONDANSETRON 4MG 2ML VIAL As Ordered ONE; -fentaNYL 100 MCG/2 ML INJECTION As Ordered ONE; -propofoL 200 MG/20 ML VIAL As Ordered ONE
== END ==
LOC: M RAD 12:03
PROVIDERS: ATTEND Internal Medicine Medical Oncology
DX: C54.1 Malignant neoplasm of endometrium (principal); I51.7 Cardiomegaly; K57.30 Diverticulosis of large intestine without perforation or abscess without bleeding; D35.02 Benign neoplasm of left adrenal gland; Z96.0 Presence of urogenital implants
CPT/HCPCS: 71250; 74176; Q9963

== ENCOUNTER → 2024-01-02 | Outpatient (CLI) | payer OTHER ==
[~2024-01-02] MED LIST changes: -GASTROGRAFIN SOLUTION 30ML As Ordered ONE
== END ==
LOC: M RAD 12:39
PROVIDERS: ATTEND Internal Medicine Medical Oncology
DX: M54.2 Cervicalgia (principal)

== ENCOUNTER → 2024-01-02 | Outpatient (CLI) | payer OTHER ==
[~2024-01-02] MED LIST changes: +LIDOCAINE W/EPINEPHRINE 1% 20ML VIAL As Ordered ONE; +MIDAZOLAM INJ 2MG/2ML VIAL As Ordered ONE; +NS 1,000 ML IV SCH; +fentaNYL 100 MCG/2 ML INJECTION As Ordered ONE
[2024-01-02 13:05] VITALS: TEMP 97.3
[2024-01-02 15:01] VITALS: BP 154/64; O2SAT 99
== END ==
LOC: M IRPRO 12:32
PROVIDERS: ATTEND Internal Medicine Medical Oncology
DX: C54.1 Malignant neoplasm of endometrium (principal); M54.2 Cervicalgia
CPT/HCPCS: 36589; 76536; 99152; 99153; J2250; J3010

== ENCOUNTER → 2024-01-29 | Outpatient (CLI) | payer OTHER ==
[~2024-01-29] MED LIST changes: -LIDOCAINE W/EPINEPHRINE 1% 20ML VIAL As Ordered ONE; -MIDAZOLAM INJ 2MG/2ML VIAL As Ordered ONE; -NS 1,000 ML IV SCH; -fentaNYL 100 MCG/2 ML INJECTION As Ordered ONE
[2024-01-29 10:33] LABS: FREE T4 1.28 NG/DL (0.89-1.76); THYROID STIMULATING HORMONE 3.383 uIU/ML (0.55-4.78)
== END ==
LOC: M PLALAB 07:25
PROVIDERS: ATTEND Physician Assistant
DX: E11.21 Type 2 diabetes mellitus with diabetic nephropathy (principal); E03.9 Hypothyroidism, unspecified

== ENCOUNTER → 2024-02-29 | Outpatient (CLI) | payer OTHER | LOC: M RAD 15:25 | PROVIDERS: ATTEND Internal Medicine Medical Oncology | DX: C54.1 Malignant neoplasm of endometrium (principal) ==

== ENCOUNTER → 2024-05-16 | Outpatient (CLI) | payer OTHER | LOC: M WHC 08:15 | PROVIDERS: ATTEND Physician Assistant | DX: Z12.31 Encounter for screening mammogram for malignant neoplasm of breast (principal); Z13.820 Encounter for screening for osteoporosis; R92.323 Mammographic fibroglandular density, bilateral breasts; Z79.52 Long term (current) use of systemic steroids ==

== ENCOUNTER → 2024-06-27 | Outpatient (CLI) | payer OTHER ==
[~2024-06-27] MED LIST changes: +ANAS1TAB2 PO; +ELIQ5TAB PO
== END ==
LOC: M RAD 08:27
PROVIDERS: ATTEND Dietitian, Registered
DX: C54.1 Malignant neoplasm of endometrium (principal); Z90.49 Acquired absence of other specified parts of digestive tract; K76.89 Other specified diseases of liver; Z96.0 Presence of urogenital implants; K57.90 Diverticulosis of intestine, part unspecified, without perforation or abscess without bleeding; K44.9 Diaphragmatic hernia without obstruction or gangrene; R93.89 Abnormal findings on diagnostic imaging of other specified body structures

== ENCOUNTER 2024-07-23 08:59 | Outpatient (RCR) | payer OTHER ==
[~2024-07-23 08:59] MED LIST changes: +AMLO1TAB25 PO
== END 2024-07-24 ==
LOC: M PT 08:59
PROVIDERS: ATTEND Physician Assistant
DX: I89.0 Lymphedema, not elsewhere classified (principal)

== ENCOUNTER 2024-08-15 08:59 | Outpatient (RCR) | payer OTHER | END 2024-08-23 | LOC: M PT 08:59 | PROVIDERS: ATTEND Physician Assistant | DX: I89.0 Lymphedema, not elsewhere classified (principal) ==

== ENCOUNTER → 2024-08-29 | Outpatient (REF) | payer OTHER ==
[2024-08-29 12:51] LABS: APPEARANCE, URINE CLEAR (CLEAR); BACTERIA, URINE AUTO 1+ (NEGATIVE); BILIRUBIN, URINE AUTO NEGATIVE (NEGATIVE); BLOOD, URINE BLOOD NEGATIVE (NEGATIVE); COLOR, URINE YELLOW (YELLOW); GLUCOSE, URINE (UA) AUTO NEGATIVE (NEGATIVE); KETONE, URINE AUTO NEGATIVE (NEGATIVE); LEUKOCYTE ESTERASE, URINE AUTO NEGATIVE (NEGATIVE); NITRITE, URINE AUTO NEGATIVE (NEGATIVE); PROTEIN, URINE AUTO 3+ mg/dL (NEGATIVE); RBC, URINE AUTO 1 /HPF (0-3); SPECIFIC GRAVITY URINE AUTO 1.016 (1.002-1.035); SQUAMOUS EPITHELIAL CELL UR AU 2 /HPF (0-6); UROBILINOGEN, URINE AUTO 0.2 mg/dL (0.0-2.0); WBC, URINE AUTO 3 /HPF (0-3)
== END ==
LOC: M SMT 09:52
PROVIDERS: ATTEND Urology
DX: N39.0 Urinary tract infection, site not specified (principal)

== ENCOUNTER → 2024-10-01 | Outpatient (REF) | payer OTHER, MEDICARE ==
[2024-10-01 19:14] LABS: CREATININE,RANDOM URINE 91.4 MG/DL; TOTAL PROTEIN,RANDOM URINE 145.2 MG/DL (0.0-14.0)
== END ==
LOC: M LAB REF 17:10
PROVIDERS: ATTEND Nurse Practitioner Family
DX: R80.9 Proteinuria, unspecified (principal)

== ENCOUNTER → 2024-10-13 | Outpatient (CLI) | payer MEDICARE ==
[~2024-10-13] MED LIST changes: +NOVOINJ3 SC; -NOVOINJ3 SQ
[2024-10-13 14:29] LABS: BASO % 0.3 % (0.0-1.0); EOS # 0.2 10^3/uL (0.0-0.5); EOS % 1.8 % (0.0-3.0); HEMATOCRIT 35.6 % (36.0-47.0); HEMOGLOBIN 11.2 g/dl (12.0-15.5); LYMPH # 0.5 10^3/uL (1.5-5.0); LYMPH % 4.9 % (24.0-44.0); MEAN CORPUSCULAR HEMOGLOBIN 28.4 pg (27.0-33.0); MEAN CORPUSCULAR HGB CONC 31.5 g/dl (32.0-36.5); MEAN CORPUSCULAR VOLUME 90.4 fl (80.0-96.0); MONO # 0.4 10^3/uL (0.0-0.8); MONO % 4.6 % (2.0-8.0); NEUTROPHILS # 8.2 10^3/uL (1.5-8.5); NEUTROPHILS % 87.8 % (36.0-66.0); PLATELET COUNT, AUTOMATED 253 10^3/uL (150-450); RED BLOOD COUNT 3.94 10^6/uL (4.00-5.40); WHITE BLOOD COUNT 9.4 10^3/uL (4.0-10.0)
[2024-10-13 14:52] LABS: PERCENT SATURATION 11.1 % (13.2-45.0)
[2024-10-13 14:53] LABS: ALBUMIN 4.2 G/DL (3.2-5.2); BILIRUBIN,TOTAL 0.7 MG/DL (0.3-1.2); CALCIUM LEVEL 9.9 MG/DL (8.3-10.6); CHOLESTEROL RISK RATIO 2.93 (<5); CREATININE FOR GFR 2.04 MG/DL (0.55-1.30); GLOMERULAR FILTRATION RATE 25.9 (>45); HDL CHOLESTEROL 37.8 MG/DL (>40); LDL CHOLESTEROL 56.8 MG/DL (<100); NON-HDL-C 73.2 MG/DL; POTASSIUM SERUM 4.5 MMOL/L (3.5-5.1); TOTAL PROTEIN 7.3 G/DL (5.7-8.2)
[2024-10-13 14:54] LABS: FREE T4 1.44 NG/DL (0.89-1.76); THYROID STIMULATING HORMONE 2.889 uIU/ML (0.55-4.78)
[2024-10-13 15:18] LABS: HEMOGLOBIN A1c 5.7 % (4.0-6.0)
== END ==
LOC: M PLALAB 10:21
PROVIDERS: ATTEND Student in an Organized Health Care Education/Training Program
DX: Z01.818 Encounter for other preprocedural examination (principal); E11.21 Type 2 diabetes mellitus with diabetic nephropathy; I48.21 Permanent atrial fibrillation; E03.9 Hypothyroidism, unspecified; I50.32 Chronic diastolic (congestive) heart failure

== ENCOUNTER → 2024-10-20 | Outpatient (CLI) | payer MEDICARE | LOC: M PLALAB 07:12 | PROVIDERS: ATTEND Urology | DX: Z01.818 Encounter for other preprocedural examination (principal); N13.30 Unspecified hydronephrosis; N39.0 Urinary tract infection, site not specified ==

== ENCOUNTER 2024-10-29 06:48 | Day surgery (SDC) | payer MEDICARE ==
[~2024-10-29] VITALS: Ht 165.1 cm; Wt 153.8 kg
[~2024-10-29 06:48] MED LIST changes: +ceFAZolin SOD 2 GM in IV 1 EA IV ONE
[2024-10-29] MEDS ORDERED: propofoL 200 MG/20 ML VIAL As Ordered ONE (06:49)
[2024-10-29] MEDS ORDERED: MIDAZOLAM INJ 2MG/2ML VIAL As Ordered ONE (06:49)
[2024-10-29] MEDS ORDERED: fentaNYL 100 MCG/2 ML INJECTION As Ordered ONE (06:49)
[2024-10-29] MEDS ORDERED: LIDOCAINE 2% 100MG/5ML SDV (FOR ANES.) As Ordered ONE (06:49)
[2024-10-29] MEDS ORDERED: ACETAMINOPHEN 1000MG/100ML IV BAG As Ordered ONE (06:49)
[2024-10-29] MEDS ORDERED: ONDANSETRON 4MG 2ML VIAL As Ordered ONE (06:50)
[2024-10-29] MEDS ORDERED: NS (Normal Saline) 0.9% 1,000 ML IV SCH (06:55)
[2024-10-29] MEDS: ceFAZolin SOD 3 GM in DEXTROSE 5% (D5W) MINI-BAG PLU 1... IV ONE (08:45)
[2024-10-29] MEDS: LIDOCAINE 2% 5ML JELLY UROJET As Ordered ONE (08:52)
[2024-10-29] MEDS: ISOVUE-300 61% 100ML VIAL As Ordered ONE (08:55)
[2024-10-29 09:33] VITALS: BP 172/72; TEMP 97.6; O2SAT 97
== END 2024-10-29 09:46 | disposition home or self-care (01) ==
LOC: M SDC 06:48
PROVIDERS: ATTEND Urology
DX: N13.2 Hydronephrosis with renal and ureteral calculous obstruction (principal); Z85.41 Personal history of malignant neoplasm of cervix uteri; I48.91 Unspecified atrial fibrillation; I10 Essential (primary) hypertension; Z92.21 Personal history of antineoplastic chemotherapy; Z92.3 Personal history of irradiation; E11.9 Type 2 diabetes mellitus without complications; E03.9 Hypothyroidism, unspecified; K58.8 Other irritable bowel syndrome; Z88.8 Allergy status to other drugs, medicaments and biological substances; Z79.4 Long term (current) use of insulin
CPT/HCPCS: 52332; 76000; A4215; C1769; C2617; J0131; J0690; J2250; J2405; Q9967

== ENCOUNTER → 2024-10-31 | Outpatient (CLI) | payer MEDICARE ==
[~2024-10-31] MED LIST changes: -ceFAZolin SOD 2 GM in IV 1 EA IV ONE
== END ==
LOC: M RAD 11:41
PROVIDERS: ATTEND Internal Medicine Medical Oncology
DX: C54.1 Malignant neoplasm of endometrium (principal); R91.8 Other nonspecific abnormal finding of lung field; K76.89 Other specified diseases of liver; N28.1 Cyst of kidney, acquired; D35.01 Benign neoplasm of right adrenal gland; K57.30 Diverticulosis of large intestine without perforation or abscess without bleeding; Z95.820 Peripheral vascular angioplasty status with implants and grafts

== ENCOUNTER → 2025-01-16 | Outpatient (CLI) | payer MEDICARE | LOC: M RAD 10:09 | PROVIDERS: ATTEND Internal Medicine Medical Oncology | DX: C54.1 Malignant neoplasm of endometrium (principal); R91.1 Solitary pulmonary nodule ==

== ENCOUNTER 2025-01-17 21:21 | Inpatient (IN) | payer MEDICARE ==
[~2025-01-17] VITALS: Ht 165.1 cm; Wt 143.5 kg
[2025-01-17 22:23] LABS: BASO # 0.1 10^3/uL (0.0-0.2); BASO % 0.4 % (0.0-1.0); EOS # 0.1 10^3/uL (0.0-0.5); EOS % 0.7 % (0.0-3.0); HEMATOCRIT 37.3 % (36.0-47.0); HEMOGLOBIN 12.5 g/dl (12.0-15.5); LYMPH # 0.4 10^3/uL (1.5-5.0); MEAN CORPUSCULAR HEMOGLOBIN 27.8 pg (27.0-33.0); MEAN CORPUSCULAR HGB CONC 33.5 g/dl (32.0-36.5); MEAN CORPUSCULAR VOLUME 82.9 fl (80.0-96.0); MONO # 0.4 10^3/uL (0.0-0.8); MONO % 2.6 % (2.0-8.0); NEUTROPHILS # 13.2 10^3/uL (1.5-8.5); NEUTROPHILS % 91.6 % (36.0-66.0); PLATELET COUNT, AUTOMATED 237 10^3/uL (150-450); WHITE BLOOD COUNT 14.4 10^3/uL (4.0-10.0)
[2025-01-17] MEDS: MORPHINE 4 MG/ML 1ML VIAL IV PRN (22:28)
[2025-01-17] MEDS: ONDANSETRON 4MG 2ML VIAL IV ONE (22:28)
[2025-01-17 22:43] LABS: INR 0.99; PARTIAL THROMBOPLASTIN TIME 30.5 SECONDS (24.8-34.2); PROTHROMBIN TIME 13.4 SECONDS (12.5-14.5)
[2025-01-17 22:45] LABS: LIPASE 105 U/L (12-53)
[2025-01-17 22:46] LABS: CPK CREATINE PHOSPHOKINASE 101 U/L (34-145)
[2025-01-17 22:47] LABS: ALBUMIN 3.9 G/DL (3.2-5.2); ALKALINE PHOSPHATASE 87 U/L (35-104); ALT/SGPT 20 U/L (7.0-40); AST/SGOT 17 U/L (<34); BILIRUBIN,DIRECT 0.4 MG/DL (<0.4); BILIRUBIN,TOTAL 0.9 MG/DL (0.3-1.2); BLOOD UREA NITROGEN 49 MG/DL (9-23); CALCIUM LEVEL 9.6 MG/DL (8.3-10.6); CARBON DIOXIDE LEVEL 27 MMOL/L (20-31); CHLORIDE LEVEL 100 MMOL/L (98-107); CK-MB VALUE MASS < 1.0 NG/ML (<3.6); GLOMERULAR FILTRATION RATE 25.5 (>45); GLUCOSE, FASTING 176 MG/DL (74-106); MB/CK RELATIVE INDEX 0.99 (< OR =4); POTASSIUM SERUM 4.2 MMOL/L (3.5-5.1); SODIUM LEVEL 137 MMOL/L (136-145); TOTAL PROTEIN 6.8 G/DL (5.7-8.2)
[2025-01-18] VITALS (7 sets, daily range): BP systolic 128–188; BP diastolic 64–81; TEMP 98.3–98.9; O2SAT 83–97
[2025-01-18 00:56] LABS: CPK CREATINE PHOSPHOKINASE 92 U/L (34-145)
[2025-01-18 00:57] LABS: CK-MB VALUE MASS < 1.0 NG/ML (<3.6); MB/CK RELATIVE INDEX 1.08 (< OR =4)
[2025-01-18] MEDS: hydrALAZINE 20MG/ML 1ML VIAL IV PRN (03:11)
[2025-01-18] MEDS: NS (Normal Saline) 0.9% 1,000 ML IV SCH (03:12)
[2025-01-18] MEDS ORDERED: ELIQ5TAB PO (03:30)
[2025-01-18] MEDS ORDERED: HOME MED LIST COMPLETE! XX SCH (03:35)
[2025-01-18 07:10] LABS: HEMATOCRIT 34.5 % (36.0-47.0); HEMOGLOBIN 11.3 g/dl (12.0-15.5); MEAN CORPUSCULAR HEMOGLOBIN 27.6 pg (27.0-33.0); MEAN CORPUSCULAR HGB CONC 32.8 g/dl (32.0-36.5); MEAN CORPUSCULAR VOLUME 84.1 fl (80.0-96.0); PLATELET COUNT, AUTOMATED 228 10^3/uL (150-450); WHITE BLOOD COUNT 13.5 10^3/uL (4.0-10.0)
[2025-01-18 07:38] LABS: ALBUMIN 3.3 G/DL (3.2-5.2); BILIRUBIN,TOTAL 0.7 MG/DL (0.3-1.2); CREATININE FOR GFR 2.07 MG/DL (0.55-1.30); POTASSIUM SERUM 4.5 MMOL/L (3.5-5.1); TOTAL PROTEIN 5.9 G/DL (5.7-8.2)
[2025-01-18] MEDS: MORPHINE 2 MG/ML 1ML VIAL IV PRN (13:05)
[2025-01-19] VITALS (8 sets, daily range): BP systolic 140–156; BP diastolic 60–78; TEMP 97.8–98.4; O2SAT 93–99
[2025-01-19] MEDS: D5W/LR 1,000 ML IV SCH (16:11)
[2025-01-20] VITALS (9 sets, daily range): BP systolic 150–190; BP diastolic 60–88; TEMP 97.3–98.6; O2SAT 92–97
[2025-01-20 06:33] LABS: HEMATOCRIT 36.3 % (36.0-47.0); HEMOGLOBIN 11.2 g/dl (12.0-15.5); MEAN CORPUSCULAR HGB CONC 30.9 g/dl (32.0-36.5); MEAN CORPUSCULAR VOLUME 87.5 fl (80.0-96.0); PLATELET COUNT, AUTOMATED 195 10^3/uL (150-450); RED BLOOD COUNT 4.15 10^6/uL (4.00-5.40); WHITE BLOOD COUNT 10.2 10^3/uL (4.0-10.0)
[2025-01-20 07:00] LABS: CALCIUM LEVEL 9.1 MG/DL (8.3-10.6); CREATININE FOR GFR 1.85 MG/DL (0.55-1.30); GLOMERULAR FILTRATION RATE 29.7 (>45); POTASSIUM SERUM 4.1 MMOL/L (3.5-5.1)
[2025-01-20] MEDS: KCL 20MEQ IN 0.45NS 1000ML 1,000 ML IV SCH (10:24)
[2025-01-20] MEDS: BISACODYL 10MG SUPP PR ONE (12:09)
[2025-01-21 03:15] VITALS: BP 156/84; TEMP 98; O2SAT 93
[2025-01-21 06:22] LABS: HEMATOCRIT 34.5 % (36.0-47.0); HEMOGLOBIN 10.9 g/dl (12.0-15.5); MEAN CORPUSCULAR HEMOGLOBIN 27.7 pg (27.0-33.0); MEAN CORPUSCULAR HGB CONC 31.6 g/dl (32.0-36.5); MEAN CORPUSCULAR VOLUME 87.8 fl (80.0-96.0); PLATELET COUNT, AUTOMATED 194 10^3/uL (150-450); RED BLOOD COUNT 3.93 10^6/uL (4.00-5.40); WHITE BLOOD COUNT 10.3 10^3/uL (4.0-10.0)
[2025-01-21 06:43] LABS: CALCIUM LEVEL 8.8 MG/DL (8.3-10.6); CREATININE FOR GFR 1.69 MG/DL (0.55-1.30); GLOMERULAR FILTRATION RATE 33.1 (>45); POTASSIUM SERUM 4.2 MMOL/L (3.5-5.1)
[2025-01-21 07:38] VITALS: BP 148/74; TEMP 97.5; O2SAT 91
[2025-01-21] MEDS ORDERED: E-Z-PAQUE 96% w/w SUSP 176GM BTL As Ordered ONE (11:58)
[2025-01-21 12:00] VITALS: BP 156/74; TEMP 97.6; O2SAT 0; O2SAT 90
[2025-01-21 15:54] VITALS: BP 156/72; TEMP 97.6; O2SAT 90
[2025-01-21 19:53] VITALS: BP 160/74; TEMP 98.2; O2SAT 93
[2025-01-21 23:49] VITALS: BP 160/62; TEMP 98.3; O2SAT 95
[2025-01-22 03:06] VITALS: BP 168/82; TEMP 97.9; O2SAT 92
[2025-01-22 04:55] LABS: HEMATOCRIT 32.5 % (36.0-47.0); HEMOGLOBIN 10.3 g/dl (12.0-15.5); MEAN CORPUSCULAR HEMOGLOBIN 27.4 pg (27.0-33.0); MEAN CORPUSCULAR HGB CONC 31.7 g/dl (32.0-36.5); MEAN CORPUSCULAR VOLUME 86.4 fl (80.0-96.0); PLATELET COUNT, AUTOMATED 194 10^3/uL (150-450); RED BLOOD COUNT 3.76 10^6/uL (4.00-5.40); WHITE BLOOD COUNT 9.5 10^3/uL (4.0-10.0)
[2025-01-22 05:26] LABS: CALCIUM LEVEL 8.5 MG/DL (8.3-10.6); CREATININE FOR GFR 1.59 MG/DL (0.55-1.30); GLOMERULAR FILTRATION RATE 35.6 (>45); POTASSIUM SERUM 3.9 MMOL/L (3.5-5.1)
[2025-01-22 08:05] VITALS: BP 140/60; TEMP 97.1; O2SAT 95
[2025-01-22] MEDS ORDERED: TRES1INJ SQ (10:21)
[2025-01-22 11:22] VITALS: BP 136/70; TEMP 97.5; O2SAT 97
== END 2025-01-22 14:05 | disposition home or self-care (01) | DRG 389 ==
LOC: M ED 21:21 → M ED INP 01-18 02:38 → M PCU 01-18 04:14
PROVIDERS: ADMIT Family Medicine; ATTEND Family Medicine
DX: K56.50 Intestinal adhesions [bands], unspecified as to partial versus complete obstruction (principal); I13.0 Hypertensive heart and chronic kidney disease with heart failure and stage 1 through stage 4 chronic kidney disease, or unspecified chronic kidney disease; I48.20 Chronic atrial fibrillation, unspecified; E87.0 Hyperosmolality and hypernatremia; Z66 Do not resuscitate; I50.9 Heart failure, unspecified; E78.5 Hyperlipidemia, unspecified; N18.30 Chronic kidney disease, stage 3 unspecified; E03.9 Hypothyroidism, unspecified; E11.22 Type 2 diabetes mellitus with diabetic chronic kidney disease; K43.9 Ventral hernia without obstruction or gangrene; I89.0 Lymphedema, not elsewhere classified; G47.33 Obstructive sleep apnea (adult) (pediatric); Z90.49 Acquired absence of other specified parts of digestive tract; Z85.42 Personal history of malignant neoplasm of other parts of uterus; Z79.01 Long term (current) use of anticoagulants; Z79.890 Hormone replacement therapy; Z79.4 Long term (current) use of insulin; Z79.899 Other long term (current) drug therapy

== ENCOUNTER → 2025-05-13 | Outpatient (CLI) | payer MEDICARE | LOC: M RAD 08:14 | PROVIDERS: ATTEND Internal Medicine Medical Oncology | DX: C54.1 Malignant neoplasm of endometrium (principal); K76.89 Other specified diseases of liver; D35.02 Benign neoplasm of left adrenal gland; Z90.49 Acquired absence of other specified parts of digestive tract; N28.1 Cyst of kidney, acquired; Z96.0 Presence of urogenital implants; K57.30 Diverticulosis of large intestine without perforation or abscess without bleeding; I70.0 Atherosclerosis of aorta ==

== ENCOUNTER → 2025-06-09 | Outpatient (CLI) | payer MEDICARE | LOC: M PLARAD 08:02 | PROVIDERS: ATTEND Internal Medicine Medical Oncology | DX: C54.1 Malignant neoplasm of endometrium (principal) | CPT/HCPCS: 78815; A9552 ==

== ENCOUNTER → 2025-06-12 | Outpatient (REF) | payer MEDICARE ==
[2025-06-12 19:06] LABS: IRON (FE) 58.0 UG/DL (50-170); PERCENT SATURATION 17.4 % (13.2-45.0)
== END ==
LOC: M LAB REF 17:37
PROVIDERS: ATTEND Nurse Practitioner Family
DX: D50.9 Iron deficiency anemia, unspecified (principal)

== ENCOUNTER → 2025-06-15 | Outpatient (REF) | payer MEDICARE ==
[2025-06-15 11:31] LABS: APPEARANCE, URINE CLEAR (CLEAR); BACTERIA, URINE AUTO NEGATIVE (NEGATIVE); BILIRUBIN, URINE AUTO NEGATIVE (NEGATIVE); BLOOD, URINE BLOOD NEGATIVE (NEGATIVE); GLUCOSE, URINE (UA) AUTO NEGATIVE (NEGATIVE); KETONE, URINE AUTO NEGATIVE (NEGATIVE); LEUKOCYTE ESTERASE, URINE AUTO 2+ (NEGATIVE); MUCUS, URINE SMALL (NEGATIVE); NITRITE, URINE AUTO NEGATIVE (NEGATIVE); PROTEIN, URINE AUTO 3+ mg/dL (NEGATIVE); RBC, URINE AUTO 3 /HPF (0-3); SPECIFIC GRAVITY URINE AUTO 1.015 (1.002-1.035); SQUAMOUS EPITHELIAL CELL UR AU 1 /HPF (0-6); UROBILINOGEN, URINE AUTO 0.2 mg/dL (0.0-2.0); WBC, URINE AUTO 18 /HPF (0-3)
== END ==
LOC: M SMT 10:07
PROVIDERS: ATTEND Urology
DX: N39.41 Urge incontinence (principal)

== ENCOUNTER → 2025-07-11 | Outpatient (CLI) | payer MEDICARE ==
[~2025-07-11] VITALS: Ht 165.1 cm; Wt 145.5 kg
[~2025-07-11] MED LIST changes: +DOXA1TAB41; +INSU100I24; +ceFAZolin SODIUM 2 GM in DEXTROSE 5% (D5W) ADV/MINI-BAG 50 ML IV ONE
[2025-07-11 07:00] VITALS: TEMP 97.8
[2025-07-11] MEDS: NS (Normal Saline) 0.9% 1,000 ML IV SCH (07:08)
[2025-07-11] MEDS: ceFAZolin SODIUM 3 GM in DEXTROSE 5% (D5W) MINI-BAG PLU 100 ML IV ONE (07:08)
[2025-07-11] MEDS: MIDAZOLAM INJ 2 MG/2 ML VIAL IV PRN (07:35)
[2025-07-11] MEDS: LIDOCAINE 1% MDV 20 ML VIAL SC SCH (07:47)
[2025-07-11 08:30] VITALS: BP 132/59; O2SAT 96
== END ==
LOC: M IRPRO 06:53
PROVIDERS: ATTEND Internal Medicine Medical Oncology
DX: C54.1 Malignant neoplasm of endometrium (principal)
CPT/HCPCS: 36561; 99152; J0688; J1642; J2250; J3010

== ENCOUNTER → 2025-08-13 | Outpatient (CLI) | payer MEDICARE ==
[~2025-08-13] MED LIST changes: +DIFI200T PO; -ceFAZolin SODIUM 2 GM in DEXTROSE 5% (D5W) ADV/MINI-BAG 50 ML IV ONE
== END ==
LOC: M WHC 09:02
PROVIDERS: ATTEND Student in an Organized Health Care Education/Training Program
DX: I10 Essential (primary) hypertension (principal); Z12.31 Encounter for screening mammogram for malignant neoplasm of breast; Z53.9 Procedure and treatment not carried out, unspecified reason

== ENCOUNTER → 2025-08-19 | Outpatient (CLI) | payer MEDICARE | LOC: M WHC 07:01 | PROVIDERS: ATTEND Student in an Organized Health Care Education/Training Program | DX: Z12.31 Encounter for screening mammogram for malignant neoplasm of breast (principal); I10 Essential (primary) hypertension; R92.323 Mammographic fibroglandular density, bilateral breasts ==